=== PATIENT | male | born 2005 | race Caucasian/White ===

== ENCOUNTER 2024-01-24 14:25 | Emergency (ER) | payer OTHER ==
[2024-01-24 15:07] VITALS: BP 126/75; PULSE 104; RESP 20; TEMP 99; BMI 34.0
[2024-01-24] MEDS ORDERED: IBUPROFEN 600 MG TABLET (FP) PO ONE (16:53)
[2024-01-24] MEDS: IBUPROFEN 400 MG TABLET (FP) PO ONE (17:04)
== END 2024-01-24 19:25 | disposition home or self-care (01) ==
LOC: JERFT 14:25
DX: S93.401A Sprain of unspecified ligament of right ankle, initial encounter (principal); M25.471 Effusion, right ankle; X50.1XXA Overexertion from prolonged static or awkward postures, initial encounter; Y93.01 Activity, walking, marching and hiking
CPT/HCPCS: 73610-TC-RT-FY; 99283-25